=== PATIENT | female | born 1990 | race African-American/Black ===

== ENCOUNTER 2023-10-30 20:33 | Emergency (ER) | payer SELFPAY ==
[~2023-10-30] VITALS: Ht 172.7 cm; Wt 107.0 kg
[2023-10-30 20:46] VITALS: BP 105/85; PULSE 66; RESP 16; TEMP 98.9; O2SAT 96
== END 2023-10-31 03:15 | disposition left against medical advice (07) ==
LOC: ER 20:33
DX: R11.0 Nausea (principal); Z53.21 Procedure and treatment not carried out due to patient leaving prior to being seen by health care provider
CPT/HCPCS: 93005; 99281